=== PATIENT | female | born 1960 | race Caucasian/White ===

== ENCOUNTER 2019-08-03 06:00 | Outpatient (RCR) | payer BC, SELFPAY | END 2019-08-17 23:59 | disposition home or self-care (01) | LOC: WPT 06:00 | PROVIDERS: Family Provider Nurse Practitioner Family; PCP Nurse Practitioner Family; Referring Provider Nurse Practitioner; Visit Provider Nurse Practitioner | DX: M21.371 Foot drop, right foot (principal) | CPT/HCPCS: 97110; 97112; 97161 ==

== ENCOUNTER 2019-08-18 06:00 | Outpatient (RCR) | payer BC, SELFPAY | END 2019-09-15 23:59 | disposition home or self-care (01) | LOC: WPT 06:00 | PROVIDERS: Family Provider Nurse Practitioner Family; PCP Nurse Practitioner Family; Referring Provider Nurse Practitioner; Visit Provider Nurse Practitioner | DX: M21.371 Foot drop, right foot (principal) | CPT/HCPCS: 97110; 97112; 97164 ==

== ENCOUNTER 2019-09-12 15:58 | Outpatient (REF) | payer SELFPAY ==
[2019-09-12 21:18] LABS: Estmated Average Glucose 131; Hemoglobin A1C 6.2 % (4.0-6.0)
== END 2019-09-12 15:59 | disposition home or self-care (01) ==
LOC: LAB 15:58
PROVIDERS: Family Provider Nurse Practitioner Family; PCP Nurse Practitioner Family; Visit Provider Dermatology
DX: Z13.9 Encounter for screening, unspecified (principal)
CPT/HCPCS: 83036

== ENCOUNTER 2019-09-16 06:00 | Outpatient (RCR) | payer BC, SELFPAY | END 2019-10-16 23:59 | disposition home or self-care (01) | LOC: WPT 06:00 | PROVIDERS: Family Provider Nurse Practitioner Family; PCP Nurse Practitioner Family; Referring Provider Nurse Practitioner; Visit Provider Nurse Practitioner | DX: M21.371 Foot drop, right foot (principal) | CPT/HCPCS: 97110 ==

== ENCOUNTER → 2020-01-08 12:25 | Outpatient (BNVA) | payer BC, SELFPAY | PROVIDERS: Family Provider Nurse Practitioner Family; PCP Nurse Practitioner Family; Visit Provider Nurse Practitioner Family | DX: F41.9 Anxiety disorder, unspecified (principal); M54.5 Low back pain; E55.9 Vitamin D deficiency, unspecified; E78.2 Mixed hyperlipidemia; E11.9 Type 2 diabetes mellitus without complications | CPT/HCPCS: 80053; 80061; 82306; 83036; 83735; 85025 ==

== ENCOUNTER → 2020-01-09 11:27 | Outpatient (BNVA) | payer BC, SELFPAY | PROVIDERS: Family Provider Nurse Practitioner Family; PCP Nurse Practitioner Family; Visit Provider Nurse Practitioner Family | DX: E03.9 Hypothyroidism, unspecified (principal); E55.9 Vitamin D deficiency, unspecified; F41.9 Anxiety disorder, unspecified; M54.5 Low back pain; E83.42 Hypomagnesemia; E11.9 Type 2 diabetes mellitus without complications; G89.29 Other chronic pain; E78.2 Mixed hyperlipidemia | CPT/HCPCS: 84443 ==

== ENCOUNTER → 2020-03-19 10:29 | Outpatient (BNVA) | payer BC, SELFPAY | PROVIDERS: Family Provider Nurse Practitioner Family; PCP Nurse Practitioner Family; Visit Provider Nurse Practitioner Family | DX: E03.9 Hypothyroidism, unspecified (principal); E11.9 Type 2 diabetes mellitus without complications; E78.2 Mixed hyperlipidemia; E55.9 Vitamin D deficiency, unspecified; D64.9 Anemia, unspecified; F41.9 Anxiety disorder, unspecified; M54.5 Low back pain; G89.29 Other chronic pain | CPT/HCPCS: 80053; 80061; 81003; 82306; 83036; 83550; 83735; 84443; 85025 ==

== ENCOUNTER 2020-04-08 10:23 | Outpatient (CLI) | payer BC, SELFPAY ==
--- NOTE | 2020-04-08 10:38 | XRR_ITS ---
PROCEDURE INFORMATION: Exam: XR Bilateral Sacroiliac Joints, 3 or More Views Exam date and time: 04/08/2020 10:56 AM Age: 59 years old Clinical indication: Prior surgery; Surgery type: Lumbar; Patient HX: Vadim si joint pain, clicks during walking; Additional info: Sacroiliitis TECHNIQUE: Imaging protocol: XR Bilateral XR of the sacroiliac joints, AP inlet, both oblique views. COMPARISON: No relevant prior studies available. FINDINGS: Bones/joints: No specific abnormality of the sacroiliac joints. No bony erosions. Previous L4 and L5 laminectomies. Bilateral L3, L4, and L5 pedicle screw and deandra systems with L3-4 and L4-5 intervertebral disc space grafts. Lower pelvic mesh spiral tacks (ProTack). Soft tissues: Normal. XR/XR sacroiliac [facility] 3V [id number] IMPRESSION: No specific abnormality of the sacroiliac joints.
== END 2020-04-08 10:24 | disposition home or self-care (01) ==
LOC: RAD 10:30
PROVIDERS: PCP Nurse Practitioner Family; Visit Provider Nurse Practitioner Family
DX: M46.1 Sacroiliitis, not elsewhere classified (principal)
CPT/HCPCS: 72202

== ENCOUNTER 2020-04-28 10:51 | Outpatient (CLI) | payer BC, SELFPAY ==
--- NOTE | 2020-04-28 10:56 | CT_ITS ---
WS: [id number] CT pelvis TECHNIQUE: Noncontrast CT of the pelvis with coronal and sagittal reformatted images. CLINICAL INFORMATION: R/O Sacroiliitis COMPARISON: None. DLP: 772.[address] scans at [facility] use at least one of these dose optimization techniques: automat ed exposure control; mA and/or kV adjustment per patient size (includes targeted exams where dose is matched to clinical indication); or iterative reconstruction. FINDINGS: Prior postoperative changes L4 and L5 laminectomies. Pedicle screw fixation bilateral L3-L5. Interbod y fusion grafts L3-L4 and L4-L5. Postoperative changes pelvic mesh repair in the pelvis. Mild sclerosis involving the right greater than left sacroiliac joints consistent with sacroiliitis a nd/or degenerative change. No significant periarticular erosions. Acetabulum normal in appearance. Fe moral necks appear normal. Normal sigmoid colon. No inguinal lymphadenopathy. No pelvic lymphadenopathy. No other significant fi ndings. CT/CT pelvis wo con [id number] IMPRESSION: 1. Mild sclerosis involving the right greater than left sacroiliac joints cons istent with prior sacroiliitis and/or chronic degenerative changes. No signific ant erosions. 2. Postoperative changes lower lumbar spine described above. 3. No other significant findings.
== END 2020-04-28 10:52 | disposition home or self-care (01) ==
PROVIDERS: PCP Nurse Practitioner Family; Visit Provider Nurse Practitioner Family
DX: M46.1 Sacroiliitis, not elsewhere classified (principal)
CPT/HCPCS: 72192

== ENCOUNTER 2020-06-04 14:02 | Outpatient (CLI) | payer BC, SELFPAY ==
--- NOTE | 2020-06-04 14:15 | US_ITS ---
WS: [id number] RIGHT UPPER QUADRANT ULTRASOUND HISTORY: K76.0 - Fatty (change of) liver, not elsewhere classified COMPARISON: None available. Liver: 21.9 cm in length. Moderate enlargement the liver with diffuse hepatic steatosis. Surface of t he liver is very slightly nodular suggesting cirrhosis. Liver has also increased slightly in size sin ce the prior study. Gallbladder: Prior cholecystectomy. CBD: 0.5 cm Pancreas: Normal size and echogenicity. Right kidney: 11.1 cm in length. Normal size and echogenicity. No hydronephrosis or mass. Aorta and IVC: Unremarkable abdominal aorta and IVC. No ascites. US/US liver [id number] IMPRESSION: 1. Moderate hepatomegaly and hepatic steatosis. Both findings have increased s flo 2018. 2. Prior cholecystectomy.
== END 2020-06-04 14:03 | disposition home or self-care (01) ==
LOC: RAD 14:06
PROVIDERS: PCP Nurse Practitioner Family; Visit Provider Family Medicine
DX: K76.0 Fatty (change of) liver, not elsewhere classified (principal); R16.0 Hepatomegaly, not elsewhere classified
CPT/HCPCS: 76705

== ENCOUNTER → 2020-06-10 09:58 | Outpatient (BNVA) | payer BC, SELFPAY | PROVIDERS: PCP Nurse Practitioner Family; Visit Provider Family Medicine | DX: M25.512 Pain in left shoulder (principal); M19.019 Primary osteoarthritis, unspecified shoulder | CPT/HCPCS: 73030 ==

== ENCOUNTER 2020-06-23 11:22 | Outpatient (CLI) | payer BC, SELFPAY ==
--- NOTE | 2020-06-23 11:30 | MM_ITS ---
WS: [id number] SCREENING DIGITAL MAMMOGRAM WITH CAD HISTORY: breast cancer screening COMPARISON: 06/11/2019 and 03/29/2018 Bilateral CC and MLO views submitted. Computer aided detection analyzed. Breast composition: The breasts are almost entirely fatty. No suspicious masses, microcalcifications or architectural distortion. Benign calcification upper-outer quadrant RIGHT breast. MM/[place] [id number] IMPRESSION: BI-RADS: 2-Benign FOLLOW UP: 1 Year Follow-up
== END 2020-06-23 11:23 | disposition home or self-care (01) ==
LOC: RADSHAW 11:25
PROVIDERS: PCP Nurse Practitioner Family; Visit Provider Nurse Practitioner Family
DX: Z12.31 Encounter for screening mammogram for malignant neoplasm of breast (principal)
CPT/HCPCS: 77067

== ENCOUNTER → 2020-08-19 12:08 | Outpatient (BNVA) | payer MEDICARE, SELFPAY | PROVIDERS: PCP Nurse Practitioner Family; Visit Provider Family Medicine | DX: L76.32 Postprocedural hematoma of skin and subcutaneous tissue following other procedure (principal); Y83.8 Other surgical procedures as the cause of abnormal reaction of the patient, or of later complication, without mention of misadventure at the time of the procedure; E11.9 Type 2 diabetes mellitus without complications | CPT/HCPCS: 83036; 85025 ==

== ENCOUNTER → 2020-09-05 08:44 | Outpatient (BNVA) | payer MEDICARE, SELFPAY | PROVIDERS: PCP Nurse Practitioner Family; Visit Provider Nurse Practitioner Family | DX: E83.42 Hypomagnesemia (principal); E11.9 Type 2 diabetes mellitus without complications | CPT/HCPCS: 80053; 83735 ==

== ENCOUNTER → 2020-10-08 11:11 | Outpatient (BNVA) | payer MEDICARE, SELFPAY | PROVIDERS: PCP Nurse Practitioner Family; Visit Provider Nurse Practitioner Family | DX: N39.0 Urinary tract infection, site not specified (principal); A49.9 Bacterial infection, unspecified | CPT/HCPCS: 81003; 87086 ==

== ENCOUNTER → 2020-10-13 14:30 | Outpatient (BNVA) | payer MEDICARE, SELFPAY | PROVIDERS: PCP Nurse Practitioner Family; Visit Provider Internal Medicine | DX: Z12.11 Encounter for screening for malignant neoplasm of colon (principal); Z01.812 Encounter for preprocedural laboratory examination | CPT/HCPCS: 87635 ==

== ENCOUNTER 2020-10-20 07:16 | Day surgery (SDC) | payer MEDICARE, SELFPAY ==
[2020-10-17 10:48] VITALS: BMI 37.0
--- NOTE | 2020-10-20 07:34 | ANES.PREANE2 ---
Pre-Anesthetic Assessment Pre-Anesthetic Assessment: Height/Weight: Height 1.63 m Weight 97.976 kg Preop Diagnosis: screening Proposed Procedure: Operation Date: 10/20/20 09:00 Proposed Procedures p Colonoscopy G0121 Z12.11(Not Applicable) - Reza Rose MD Familial anesthetic complications: none Last intake: > 8 hrs Social: Social History: Tobacco Exam: Pre-Anes Outpt Exam: alert, oriented x 3, clear to auscultation bilaterally and regular rate & rhythm Airway: Cervical ROM: WNL MP: 3 Dentition: Partials CV/HEM: CV/HEM: HTN Hepatic: Comments: fatty liver GI: GI: GERD Metabolic: Metabolic: DM and Thyroid Musc/skel: Musc/skel: Lower Back Pain Anesthetic Plan: ASA status: 3 Anesthesia: MAC Risk of > 500 ml blood loss (7ml/kg in children): No PFSH Anesthesia PFSH: Medical History Adult hypothyroidism Anemia Breast cancer screening by mammogram Chronic back pain Disorder of SI (sacroiliac) joint Essential hypertension GERD (gastroesophageal reflux disease) History of stress test 12/2017 Unremarkable Lexiscan infusion. #1. My call perfusion imaging revealing a small area of persistent decreased tracer uptake in the anterior wall and anteroseptal region, most likely represent attenuation artifact. #2. Normal LV ejection fraction of 75%. #3. LV wall motion analysis revealed no gross wall motion abnormalities. #4. Normal LV volume. No significant coronary ischemia, based on the above findings Hypercholesterolemia Hypomagnesemia Low back pain Mixed hyperlipidemia Nonalcoholic fatty liver disease Osteoarthritis of spine with myelopathy, lumbar region Sacroiliitis Type 2 diabetes mellitus UTI (urinary tract infection), bacterial Vitamin D deficiency Surgical History History of back surgery S/P cholecystectomy S/P colonoscopy 2013 - normal colonoscopy S/P total abdominal hysterectomy Family History Other CAD (coronary artery disease) Cancer Social History Smoking and tobacco status: current every day smoker Alcohol intake: current Alcohol intake frequency: holidays/special occasions only Data Anesthesia Cardiac Studies: No Data to Display
--- NOTE | 2020-10-20 08:31 | W.PM.OPSUD ---
Surgery/Procedure H&P Update DATE OF PROCEDURE: October 20, 2020 DATE H&P PERFORMED: 10/13/20 PREOP DIAGNOSIS: screening PLANNED PROCEDURE: Operation Date: 10/20/20 09:00 Proposed Procedures p Colonoscopy G0121 Z12.11(Not Applicable) - Reza Rose MD
[2020-10-20 08:57] VITALS: BP 100/57; PULSE 73; RESP 18; TEMP 36.1; O2SAT 94
[2020-10-20] MEDS: sodium chloride 0.9% 1,000 ML 30 ML IV (09:26)
[2020-10-20 09:36] LABS: Glucose Point of Care 113 mg/dL (70-110)
[2020-10-20 10:07] VITALS: BP 85/55; PULSE 97; RESP 16; TEMP 36.8; O2SAT 97
[2020-10-20 10:23] VITALS: BP 107/63; PULSE 71; RESP 18; O2SAT 97
--- NOTE | 2020-10-20 17:44 | ANE.PACU2 ---
Inpatient post-anesthesia follow up: Airway intact: Yes Vital signs: Temperature 98.3 F Pulse Rate 71 Respiratory Rate 18 Blood Pressure 107/63 Pulse Oximetry 97 Oxygen Delivery Me thod Room Air Oxygen Flow Rate 2 Fraction of Inspir ed Oxygen Hydration adequate: Yes Nausea and vomiting: No Pain level: 2 Mental status: Baseline
== END 2020-10-20 10:41 | disposition home or self-care (01) ==
PROVIDERS: PCP Nurse Practitioner Family; Visit Provider Internal Medicine
PROC: 0DJD8ZZ Inspection of Lower Intestinal Tract, Via Natural or Artificial Opening Endoscopic (ICD-10-PCS; CPT 45378; principal; 2020-10-20 09:00)
DX: Z12.11 Encounter for screening for malignant neoplasm of colon (principal); E03.9 Hypothyroidism, unspecified; K21.9 Gastro-esophageal reflux disease without esophagitis; I10 Essential (primary) hypertension; E78.2 Mixed hyperlipidemia; F17.210 Nicotine dependence, cigarettes, uncomplicated; E11.9 Type 2 diabetes mellitus without complications
CPT/HCPCS: 36416; 82962; 96360; G0121; J2704; J7030

== ENCOUNTER → 2020-12-11 12:01 | Outpatient (BNVA) | payer MEDICARE, SELFPAY | PROVIDERS: PCP Nurse Practitioner Family; Visit Provider Nurse Practitioner Family | DX: E11.9 Type 2 diabetes mellitus without complications (principal); E83.42 Hypomagnesemia; E78.2 Mixed hyperlipidemia; D64.9 Anemia, unspecified; E03.9 Hypothyroidism, unspecified; K76.0 Fatty (change of) liver, not elsewhere classified | CPT/HCPCS: 80053; 80061; 81003; 82607; 82728; 82746; 83036; 83550; 83735; 84100; 84439; 84443; 85025 ==

== ENCOUNTER 2021-01-23 09:45 | Outpatient (CLI) | payer MEDICARE, SELFPAY ==
--- NOTE | 2021-01-23 10:00 | XR_ITS ---
WS: [id number] ABDOMEN KUB CLINICAL INFORMATION: Lower right rib and upper quadrant pain COMPARISON: None. FINDINGS: Normal bowel gas pattern. Scattered air and normal caliber small and large bowel. No significant golden l distention. Hepatomegaly with enlarged right hepatic lobe. This can be further evaluated ultrasound . Cholecystectomy clips. Pedicle screw fixation with interbody fusion L3-L5. Associated laminectomy def ects. Interbody fusion grafts. Left sacroiliac fusion. Postoperative changes overlying the pelvis. Aileen mbar curve convex right with moderate spondylitic changes. Pelvic phleboliths. XR/XR KUB [id number] Impression: 1. Normal bowel gas pattern. 2. Hepatomegaly with enlarged right hepatic lobe. This can be further evaluate d with ultrasound. 3. Prior cholecystectomy.
--- NOTE | 2021-01-23 10:15 | XR_ITS ---
WS: [id number] RIBS RIGHT TECHNIQUE: 3 views of the right ribs CLINICAL INFORMATION: R10.9 - Unspecified abdominal pain COMPARISON: None. FINDINGS: Right ribs are normal in appearance. No acute right rib fractures. Lumbar curve convex right with medical screw fixation L3-L5. XR/XR ribs RT 2V* [id number] IMPRESSION: No visualized right rib fractures.
== END 2021-01-23 09:46 | disposition home or self-care (01) ==
PROVIDERS: PCP Nurse Practitioner Family; Visit Provider Nurse Practitioner Family
DX: R07.81 Pleurodynia; R10.11 Right upper quadrant pain; R16.0 Hepatomegaly, not elsewhere classified; Z90.49 Acquired absence of other specified parts of digestive tract
CPT/HCPCS: 71100; 74018

== ENCOUNTER → 2021-02-16 10:02 | Outpatient (BNVA) | payer MEDICARE, SELFPAY | PROVIDERS: PCP Nurse Practitioner Family; Visit Provider Nurse Practitioner Family | DX: Z20.822 Contact with and (suspected) exposure to COVID-19 (principal); J32.9 Chronic sinusitis, unspecified | CPT/HCPCS: 87635 ==

== ENCOUNTER → 2021-03-03 10:50 | Outpatient (BNVA) | payer MEDICARE, SELFPAY | PROVIDERS: PCP Nurse Practitioner Family; Visit Provider Family Medicine | DX: R10.9 Unspecified abdominal pain (principal); R16.0 Hepatomegaly, not elsewhere classified; R16.1 Splenomegaly, not elsewhere classified; Z98.1 Arthrodesis status | CPT/HCPCS: 74018; 83690; 85025; 86140 ==

== ENCOUNTER 2021-03-04 11:52 | Outpatient (CLI) | payer MEDICARE, SELFPAY ==
--- NOTE | 2021-03-04 13:30 | CT_ITS ---
WS: [id number] CT ABDOMEN PELVIS TECHNIQUE: Noncontrast CT of the abdomen and pelvis with coronal and sagittal reformatted images. CLINICAL INFORMATION: R10.9 - Unspecified abdominal pain COMPARISON: CT pelvis April 28, 2020 DLP: 876.[address] scans at [facility] use at least one of these dose optimization techniques: automat ed exposure control; mA and/or kV adjustment per patient size (includes targeted exams where dose is matched to clinical indication); or iterative reconstruction. FINDINGS: Hepatomegaly with slight cirrhotic configuration to the liver capsule. Recommend correlation with izzy er function studies. Mild splenomegaly. Prior cholecystectomy. Normal GE junction. Lung bases are wel l aerated. Adrenal glands are normal. No hydronephrosis in either kidney. Pelvic phleboliths. Prior postoperative changes L3-L5 with interbody fusion grafts. Fusion across the left sacroiliac robyn nt. Normal sigmoid colon. No evidence of high-grade small or large bowel obstruction. A few air-fluid lev els in normal caliber transverse colon. Small bowel is decompressed. Normal caliber abdominal aorta. Mild aortic calcification. Tiny fat-containing umbilical hernia. CT/CT abdomen pelvis wo con [id number] IMPRESSION: 1. Marked hepatomegaly with enlargement of the right hepatic lobe. Slight cirr hotic contour to the liver. Recommend correlation with liver function studies. 2. Mild splenomegaly. 3. No evidence of high-grade small or large bowel obstruction. A few air-fluid levels in normal caliber transverse colon. Small bowel is decompressed. 4. No free fluid in the abdomen or pelvis. 5. No hydronephrosis in either kidney. 6. Prior L3-L5 lumbar spine fusion with left sacroiliac fusion.
== END 2021-03-04 11:53 | disposition home or self-care (01) ==
PROVIDERS: PCP Nurse Practitioner Family; Visit Provider Family Medicine
DX: K76.0 Fatty (change of) liver, not elsewhere classified (principal); R10.9 Unspecified abdominal pain; M43.26 Fusion of spine, lumbar region; R16.1 Splenomegaly, not elsewhere classified; R16.0 Hepatomegaly, not elsewhere classified
CPT/HCPCS: 74176; 80053; 80074; 82728; 82977; 85610; 86160; 86162; 86235; 86255; 86376

== ENCOUNTER → 2021-04-14 11:20 | Outpatient (BNVA) | payer MEDICARE, SELFPAY | PROVIDERS: PCP Nurse Practitioner Family; Visit Provider Family Medicine | DX: E11.9 Type 2 diabetes mellitus without complications (principal); K76.0 Fatty (change of) liver, not elsewhere classified; E78.2 Mixed hyperlipidemia | CPT/HCPCS: 80053; 80061; 83036; 85025 ==

== ENCOUNTER 2021-04-30 07:01 | Outpatient (CLI) | payer MEDICARE, SELFPAY ==
--- NOTE | 2021-04-30 07:14 | MR_ITS ---
WS: [email or web address] MRCP (MAGNETIC RESONANCE CHOLANGIOPANCREATOGRAPHY) HISTORY: R10.9 - Unspecified abdominal pain COMPARISON: None available. TECHNIQUE: Multiple sequences are performed to evaluate the intra and extrahepatic ducts. Liver is enlarged extending 20 cm in length. No bile duct dilatation or mass within the liver. The sp suzette is also mildly enlarged at 13.8 cm. Normal size portal vein. Gallbladder has been removed. The c ommon bile duct is normal at 4.8 cm. Normal appearance of these pancreas. No pancreatic head mass. No rmal size pancreatic duct. Normal adrenal glands. Kidneys are normal. MR/MR MRCP [id number] IMPRESSION: 1. Prior cholecystectomy. 2. Normal sized common bile duct. 3. Moderate hepatomegaly and mild splenomegaly.
== END 2021-04-30 07:02 | disposition home or self-care (01) ==
LOC: RADSHAW 07:02
PROVIDERS: PCP Nurse Practitioner Family; Visit Provider Family Medicine
DX: R16.1 Splenomegaly, not elsewhere classified (principal); R16.0 Hepatomegaly, not elsewhere classified; R10.9 Unspecified abdominal pain; Z90.49 Acquired absence of other specified parts of digestive tract
CPT/HCPCS: 74181

== ENCOUNTER 2021-05-18 10:16 | Outpatient (CLI) | payer MEDICARE, SELFPAY ==
[2021-05-19 11:22] LABS: Alpha 1 Antitrypsin 169 mg/dL (83-199)
== END 2021-05-18 10:17 | disposition home or self-care (01) ==
LOC: LAB 10:25
PROVIDERS: PCP Family Medicine; Visit Provider Family Medicine
DX: K76.0 Fatty (change of) liver, not elsewhere classified (principal)
CPT/HCPCS: 82103; 83516

== ENCOUNTER 2021-06-25 08:19 | Outpatient (CLI) | payer MEDICARE, SELFPAY ==
--- NOTE | 2021-06-25 08:49 | MM_ITS ---
WS: [email or web address] Exam: [place] [id number] Date/Time of Exam: 06/25/2021 8:54 AM Reason For Exam: SCREENING VIEWS: MLO and CC views both breasts. Comparison made with prior exam of 03/29/2018, 06/11/2019 and 06/23/2020. Findings: There was no sign of mass, architectural distortion or suspicious calcification in either breast. Fa [place]ty MM/[place] [id number] Impression: BI-RADS: 2-Benign FOLLOW-UP: 1 Year Follow-up This mammogram was also analyzed by the Computer Aided Detection System R2 Imag e Accreditation Coordinator.
== END 2021-06-25 08:20 | disposition home or self-care (01) ==
LOC: RADSHAW 08:41
PROVIDERS: PCP Family Medicine; Visit Provider Nurse Practitioner Family
DX: Z12.31 Encounter for screening mammogram for malignant neoplasm of breast (principal)
CPT/HCPCS: 77067

== ENCOUNTER → 2021-08-18 08:27 | Outpatient (BNVA) | payer MEDICARE, SELFPAY | PROVIDERS: PCP Family Medicine; Visit Provider Family Medicine | DX: E11.9 Type 2 diabetes mellitus without complications (principal); E03.9 Hypothyroidism, unspecified; E78.2 Mixed hyperlipidemia; E83.42 Hypomagnesemia | CPT/HCPCS: 80053; 80061; 83036; 83735; 84443 ==

== ENCOUNTER 2021-09-04 11:42 | Outpatient (CLI) | payer MEDICARE, SELFPAY ==
--- NOTE | 2021-09-04 11:50 | XR_ITS ---
WS: [email or web address] LUMBAR SPINE TECHNIQUE: 7 views of the lumbar spine CLINICAL INFORMATION: M54.50 - Low back pain, unspecified COMPARISON: None. FINDINGS: Mild lumbar curve convex RIGHT. Pedicle screw fixation L3-L5 with interconnecting rods. Laminectomy d efects L3-L5. Screw fixation across the LEFT sacroiliac joint. Cholecystectomy clips. Interbody bony fusion through L3-L4 and L4-L5.. Aortic calcification. Trace anterolisthesis L3 on L4. Disc space narrowing worse at L2-L3 and L5-S1. No instability on flex ion-extension. XR/XR lumbar spine 6V w f/e [id number] IMPRESSION: 1. No instability on flexion-extension. 2. Pedicle screw fixation L3-L5 with laminectomy defects and interbody fusion grafts. 3. Hardware fixation across the LEFT sacroiliac joint. 4. Mild lumbar curve convex RIGHT. 5. Disc space narrowing worse at L2-L3 and L5-S1.
== END 2021-09-04 11:43 | disposition home or self-care (01) ==
PROVIDERS: PCP Family Medicine; Visit Provider Nurse Practitioner Family
DX: M54.50 Low back pain, unspecified (principal)
CPT/HCPCS: 72114

== ENCOUNTER → 2022-04-20 09:48 | Outpatient (BNVA) | payer MEDICARE, SELFPAY | PROVIDERS: PCP Family Medicine; Visit Provider Anesthesiology Pain Medicine | DX: G89.29 Other chronic pain (principal); M53.3 Sacrococcygeal disorders, not elsewhere classified; M46.1 Sacroiliitis, not elsewhere classified; M43.26 Fusion of spine, lumbar region; M51.16 Intervertebral disc disorders with radiculopathy, lumbar region; M47.816 Spondylosis without myelopathy or radiculopathy, lumbar region; M79.604 Pain in right leg; M79.605 Pain in left leg; Z87.891 Personal history of nicotine dependence | CPT/HCPCS: 99205 ==

== ENCOUNTER → 2022-04-28 13:23 | Outpatient (BNVA) | payer MEDICARE, SELFPAY | PROVIDERS: PCP Family Medicine; Visit Provider Anesthesiology Pain Medicine | DX: G89.29 Other chronic pain (principal); M79.18 Myalgia, other site; Z87.891 Personal history of nicotine dependence | CPT/HCPCS: 20553; G0463 ==

== ENCOUNTER → 2022-05-13 08:18 | Outpatient (BNVA) | payer MEDICARE, SELFPAY | PROVIDERS: PCP Family Medicine; Visit Provider Nurse Practitioner Family | DX: E03.9 Hypothyroidism, unspecified (principal); D64.9 Anemia, unspecified; I10 Essential (primary) hypertension; E78.2 Mixed hyperlipidemia; E11.9 Type 2 diabetes mellitus without complications | CPT/HCPCS: 80053; 80061; 83036; 84443; 85025 ==

== ENCOUNTER 2022-06-07 13:44 | Outpatient (CLI) | payer MEDICARE, SELFPAY ==
--- NOTE | 2022-06-07 13:45 | MR_ITS ---
WS: [email or web address] MRI OF THE SACRUM WITHOUT GADOLINIUM ENHANCEMENT. INDICATION: Low back pain and SI joint pain bilateral leg weakness. TECHNIQUE: Coronal T2, coronal STIR, axial T1, axial T2, sagittal T1 fat sat and sagittal T2 fat sat. FINDINGS: Postoperative changes as described on the concurrent lumbar spine MRI. Fusion across the LEFT sacroiliac joint. Normal bone marrow signal in the sacrum. No evidence of sacr al insufficiency fracture. Mild to moderate degenerative narrowing both hips. Normal bone marrow sign al in the femoral heads and femoral necks. Normal visualized soft tissues. No inguinal lymphadenopath y. MR/MR sacrum wo con* [id number] IMPRESSION: 1. Postoperative changes lower lumbar spine with screw fixation across the LEF T sacroiliac joint. Mild degenerative sclerosis about the RIGHT greater than LE FT sacroiliac joints. 2. Normal bone marrow signal in the sacrum. No evidence of sacral insufficienc y fracture. 3. No other suspicious findings.
== END 2022-06-07 13:45 | disposition home or self-care (01) ==
PROVIDERS: PCP Family Medicine; Visit Provider Nurse Practitioner Family
DX: M48.062 Spinal stenosis, lumbar region with neurogenic claudication (principal); M48.061 Spinal stenosis, lumbar region without neurogenic claudication; M50.222 Other cervical disc displacement at C5-C6 level
CPT/HCPCS: 72148

== ENCOUNTER 2022-06-07 13:45 | Outpatient (CLI) | payer MEDICARE, SELFPAY ==
--- NOTE | 2022-06-07 14:30 | MR_ITS ---
WS: [email or web address] MRI LUMBAR SPINE NONCONTRAST TECHNIQUE: Sagittal T1, T2 and STIR imaging. Axial T1 and T2 imaging. CLINICAL INFORMATION: M48.062 - Spinal stenosis, lumbar region with neurogenic ... COMPARISON: MRI 2019 FINDINGS: Counting performed from the craniocervical junction. S1 is lumbarized. Recommend plain film correlati on prior to surgical intervention. Numbering convention corresponds to the prior MRI in 2019. Prior p ostoperative changes pedicle screw fixation L4-S1 with interbody fusion grafts. Laminectomy defects L 4-S1. Shallow disc protrusions in the cervical spine hockey scout imaging at C5-C6. L1-L2: Normal. L2-L3: Mild disc osteophytic ridging. Impingement RIGHT subarticular recess and traversing RIGHT L3 n erve root. Slight impingement on the exiting RIGHT L2 nerve root with mild RIGHT foraminal narrowing unchanged from previous. Mild facet arthropathy. L3-L4: Mild disc osteophytic ridging. Moderate facet arthropathy. Moderate central canal stenosis pro gressed compared to previous. Small bilateral foraminal protrusions with mild LEFT greater than RIGHT foraminal narrowing. L4-L5: Prior laminectomy defects. Osteophytic ridging. Mild LEFT bony foraminal narrowing. Spinal can al and RIGHT foramen are patent. L5-S1: Disc osteophytic ridging. Laminectomy defects. Slight impingement traversing S1 nerve roots bi laterally. Mild LEFT and no significant RIGHT foraminal narrowing. S1-S2: S1 is lumbarized. Laminectomy defects. Spinal canal is patent. Moderate facet arthropathy. Mil d RIGHT foraminal narrowing. LEFT foramen is patent. Visualized pelvic bony structures: Normal. Paravertebral soft tissues: Normal. MR/MR lumbar spine wo con* [id number] IMPRESSION: 1. Counting performed from the craniocervical junction. S1 is lumbarized. Rigoberto mmend plain film correlation prior to surgical intervention. 2. Prior pedicle screw fixation with interbody fusion L4-S1. 3. Moderate central canal stenosis L3-L4 has progressed compared to previous. LEFT greater than RIGHT foraminal narrowing at this level with small foraminal protrusions. 4. Disc osteophyte complex L2-L3 with impingement RIGHT subarticular recess an d traversing RIGHT L3 nerve root. Mild RIGHT L2-L3 foraminal narrowing. This is stable compared to previous. 5. Laminectomy defects L4-S1. Spinal canal is decompressed. 6. Small central protrusion cervical spine hockey scout imaging at C5-C6 with slight contact of the cervical cord.
== END 2022-06-07 13:46 | disposition home or self-care (01) ==
PROVIDERS: PCP Family Medicine; Visit Provider Anesthesiology Pain Medicine
DX: M48.062 Spinal stenosis, lumbar region with neurogenic claudication (principal); M48.061 Spinal stenosis, lumbar region without neurogenic claudication; M50.222 Other cervical disc displacement at C5-C6 level
CPT/HCPCS: 72148

== ENCOUNTER → 2022-06-15 13:27 | Outpatient (BNVA) | payer MEDICARE, SELFPAY | PROVIDERS: PCP Family Medicine; Visit Provider Anesthesiology Pain Medicine | DX: G89.29 Other chronic pain (principal); M43.26 Fusion of spine, lumbar region; M47.816 Spondylosis without myelopathy or radiculopathy, lumbar region; M51.16 Intervertebral disc disorders with radiculopathy, lumbar region; M53.3 Sacrococcygeal disorders, not elsewhere classified; M46.1 Sacroiliitis, not elsewhere classified; M79.604 Pain in right leg; M79.605 Pain in left leg; Z87.891 Personal history of nicotine dependence | CPT/HCPCS: 99214 ==

== ENCOUNTER → 2022-06-24 16:03 | Outpatient (BNVA) | payer MEDICARE, SELFPAY | PROVIDERS: PCP Family Medicine; Visit Provider Nurse Practitioner | DX: R30.9 Painful micturition, unspecified (principal) | CPT/HCPCS: 81000 ==

== ENCOUNTER 2022-08-06 09:05 | Outpatient (CLI) | payer MEDICARE, SELFPAY ==
--- NOTE | 2022-08-06 09:38 | MM_ITS ---
WS: [email or web address] BILATERAL SCREENING DIGITAL TOMOSYNTHESIS MAMMOGRAM WITH CAD HISTORY: SCREENING COMPARISON: 06/25/2021, 06/23/2020 Bilateral CC and MLO views with tomosynthesis and synthetic mammography submitted. Computer aided det ection analyzed. Breast composition: The breasts are almost entirely fatty. No suspicious masses, microcalcifications or architectural distortion. Benign calcifications RIGHT breast. MM/[place] [id number] IMPRESSION: BI-RADS: 2-Benign FOLLOW UP: 1 Year Follow-up
== END 2022-08-06 09:06 | disposition home or self-care (01) ==
PROVIDERS: PCP Family Medicine; Visit Provider Family Medicine
DX: Z12.31 Encounter for screening mammogram for malignant neoplasm of breast (principal)
CPT/HCPCS: 77063; 77067

== ENCOUNTER 2022-09-27 16:19 | Outpatient (CLI) | payer MEDICARE, SELFPAY ==
--- NOTE | 2022-09-27 17:00 | CT_ITS ---
WS: [email or web address] CT LUMBAR SPINE, noncontrast. HISTORY: LUMBOSACRAL SPONDYLOSIS WITHOUT MYELOPATHY TECHNIQUE: Contiguous 2.0 mm axial imaging are performed. Sagittal and coronal reformats are submitte d and reviewed. All CT scans at [facility] use at least one of these dose optimization techni ques: automated exposure control; mA and/or kV adjustment per patient size (includes targeted exams w here dose is matched to clinical indication); or iterative reconstruction. IV contrast: None DLP: 1771.81 mGy.cm COMPARISON: Lumbar spine MRI 06/07/2022. Vertebral body numbering will be the same as on the prior MRI which described S1 is lumbarized in the posterior fusion from L4 to S1. L1 is the first nonrib-bearing vertebral body. Posterior lumbar fusion hardware from L4 to S1 with S1 being lumbarized. Interbody spacers at L4-5 an d L5-S1. There is at least partial ankylosis along the disc spacers. Advancing degenerative disc dise ase and vacuum disc phenomenon at L3-4. L1-2: Normal. L2-3: Diffuse annular disc bulging and osteophytic ridging. Disc and osteophyte encroachment upon the ventral thecal sac. Small vertebral body osteophytes contact the RIGHT exiting L2 nerve root. No dis placement. Very minimal central and subarticular recess narrowing. L3-4: Diffuse moderate osteophytic ridging with ligamentum flavum and facet arthritis. Bilateral fora talat osteophytes slightly greater on the LEFT. At least moderate central and bilateral subarticular recess and foraminal stenosis. There is disc, osteophyte and facet encroachment upon the L3 and L4 ne rve roots. L4-5: Mild osteophytic ridging. Prior laminectomy defect. Very mild foraminal stenosis. L5-S1: Mild osteophytic ridging and prior laminectomy defects. Very mild narrowing of the central can al and moderate LEFT foraminal stenosis. S1-S2: Disc osteophyte complex on the RIGHT with encroachment into the subarticular recess and proxim al foramina. There is a posterior laminectomy defect. No central stenosis. Disc osteophyte contacts t he exiting RIGHT S2 nerve root. Mild foraminal narrowing. LEFT screws extend across the SI joint. SI joints not widened. Mild bilateral degenerative air in the SI joints. CT/CT lumbar spine wo con* [id number] IMPRESSION: 1. Same numbering pattern will be utilized as on the prior MRI report which in dicates lumbar station of S1. 2. Posterior lumbar fusion from L4 to S1 with large posterior laminectomy defe cts. 3. Moderate central, bilateral subarticular recess and foraminal stenosis at L 3-4. Similar to the prior study. 4. Moderate LEFT foraminal stenosis and mild central stenosis at L5-S1 without change. 5. Moderate RIGHT disc osteophyte at S1-S2. Significant contact on the RIGHT e xiting S2 nerve root and foraminal narrowing. 6. Mild central and subarticular recess encroachment at L2-3.
== END 2022-09-27 16:20 | disposition home or self-care (01) ==
PROVIDERS: PCP Family Medicine; Visit Provider Physician Assistant
DX: M51.36 Other intervertebral disc degeneration, lumbar region (principal); M47.817 Spondylosis without myelopathy or radiculopathy, lumbosacral region; M43.26 Fusion of spine, lumbar region; M48.061 Spinal stenosis, lumbar region without neurogenic claudication; M48.07 Spinal stenosis, lumbosacral region; M25.78 Osteophyte, vertebrae
CPT/HCPCS: 72131

== ENCOUNTER → 2022-09-29 11:33 | Outpatient (BNVA) | payer MEDICARE, SELFPAY | PROVIDERS: PCP Family Medicine; Visit Provider Family Medicine | DX: E11.9 Type 2 diabetes mellitus without complications (principal); M48.00 Spinal stenosis, site unspecified | CPT/HCPCS: 80053; 80061; 83036; 84443; 85025 ==

== ENCOUNTER 2022-10-16 06:00 | Outpatient (RCR) | payer MEDICARE, SELFPAY | END 2022-11-14 23:59 | disposition home or self-care (01) | LOC: WPT 06:00 | PROVIDERS: Visit Provider Physician Assistant | DX: M47.817 Spondylosis without myelopathy or radiculopathy, lumbosacral region (principal); M43.26 Fusion of spine, lumbar region | CPT/HCPCS: 97110; 97112; 97162; 97530 ==

== ENCOUNTER → 2022-11-04 08:14 | Outpatient (BNVA) | payer MEDICARE, SELFPAY | PROVIDERS: PCP Nurse Practitioner; Visit Provider Nurse Practitioner | DX: E03.9 Hypothyroidism, unspecified (principal); E11.9 Type 2 diabetes mellitus without complications; K76.0 Fatty (change of) liver, not elsewhere classified; E55.9 Vitamin D deficiency, unspecified | CPT/HCPCS: 80053; 80061; 82306; 83036; 83735; 84443; 85025 ==

== ENCOUNTER → 2023-02-15 08:44 | Outpatient (BNVA) | payer MEDICARE, SELFPAY | PROVIDERS: PCP Nurse Practitioner; Visit Provider Nurse Practitioner | DX: E11.9 Type 2 diabetes mellitus without complications (principal); E78.2 Mixed hyperlipidemia | CPT/HCPCS: 80053; 80061; 83036; 84443 ==

== ENCOUNTER → 2023-05-25 09:45 | Outpatient (BNVA) | payer MEDICARE, SELFPAY | PROVIDERS: PCP Nurse Practitioner; Visit Provider Nurse Practitioner Family | DX: R68.89 Other general symptoms and signs (principal); R09.81 Nasal congestion; H65.93 Unspecified nonsuppurative otitis media, bilateral; H69.90 Unspecified Eustachian tube disorder, unspecified ear; J30.9 Allergic rhinitis, unspecified | CPT/HCPCS: 87400 ==

== ENCOUNTER → 2023-08-11 15:54 | Outpatient (BNVA) | payer MEDICARE, SELFPAY | PROVIDERS: PCP Nurse Practitioner; Visit Provider Nurse Practitioner Family | DX: I10 Essential (primary) hypertension (principal); E78.2 Mixed hyperlipidemia; F41.9 Anxiety disorder, unspecified; E11.9 Type 2 diabetes mellitus without complications; E03.9 Hypothyroidism, unspecified; E53.8 Deficiency of other specified B group vitamins; K76.0 Fatty (change of) liver, not elsewhere classified; D64.9 Anemia, unspecified; D51.8 Other vitamin B12 deficiency anemias; Z78.0 Asymptomatic menopausal state; G89.29 Other chronic pain | CPT/HCPCS: 80053; 80061; 81003; 82306; 82607; 82746; 83036; 84443; 85025 ==

== ENCOUNTER → 2023-09-02 08:09 | Outpatient (BNVA) | payer MEDICARE, SELFPAY | PROVIDERS: PCP Nurse Practitioner Family; Visit Provider Nurse Practitioner Family | DX: R25.2 Cramp and spasm (principal) | CPT/HCPCS: 80053; 83735 ==

== ENCOUNTER 2023-09-21 08:56 | Outpatient (CLI) | payer MEDICARE, SELFPAY ==
--- NOTE | 2023-09-21 09:00 | MM_ITS ---
WS: [email or web address] BILATERAL SCREENING DIGITAL TOMOSYNTHESIS MAMMOGRAM WITH CAD HISTORY: SCREENING COMPARISON: 08/06/2022, 06/25/2021 Bilateral CC and MLO views with tomosynthesis and synthetic mammography submitted. Computer aided det ection analyzed. Breast composition: The breasts are almost entirely fatty. No suspicious masses, microcalcifications or architectural distortion. Benign stable calcifications RIGHT breast. IMPRESSION: MM/[place] [id number] BI-RADS: 2-Benign FOLLOW UP: 1 Year Follow-up
== END 2023-09-21 08:57 | disposition home or self-care (01) ==
LOC: MOBLMAM 09:02
PROVIDERS: PCP Nurse Practitioner Family; Visit Provider Nurse Practitioner Family
DX: Z12.31 Encounter for screening mammogram for malignant neoplasm of breast (principal)
CPT/HCPCS: 77063; 77067

== ENCOUNTER → 2023-12-13 08:10 | Outpatient (BNVA) | payer MEDICARE, SELFPAY | PROVIDERS: PCP Nurse Practitioner Family; Visit Provider Nurse Practitioner Family | DX: E11.9 Type 2 diabetes mellitus without complications (principal) | CPT/HCPCS: 80053; 83036 ==

== ENCOUNTER → 2024-02-10 16:58 | Outpatient (BNVA) | payer MEDICARE, SELFPAY | PROVIDERS: PCP Nurse Practitioner Family; Visit Provider Nurse Practitioner Family | DX: R30.0 Dysuria (principal) | CPT/HCPCS: 81000 ==

== ENCOUNTER → 2024-04-06 08:15 | Outpatient (BNVA) | payer MEDICARE, SELFPAY | PROVIDERS: PCP Nurse Practitioner Family; Visit Provider Nurse Practitioner Family | DX: I10 Essential (primary) hypertension (principal); E11.9 Type 2 diabetes mellitus without complications; E03.9 Hypothyroidism, unspecified; E78.2 Mixed hyperlipidemia | CPT/HCPCS: 80053; 80061; 82043; 83036; 84443; 85025 ==

== ENCOUNTER → 2024-06-20 16:54 | Outpatient (BNVA) | payer MEDICARE, SELFPAY | PROVIDERS: PCP Nurse Practitioner Family; Visit Provider Nurse Practitioner Family | DX: G47.30 Sleep apnea, unspecified (principal); J02.9 Acute pharyngitis, unspecified | CPT/HCPCS: 87880 ==

== ENCOUNTER → 2024-07-16 14:21 | Outpatient (BNVA) | payer MEDICARE, SELFPAY | PROVIDERS: PCP Nurse Practitioner Family; Visit Provider Nurse Practitioner Family | DX: R50.9 Fever, unspecified (principal) | CPT/HCPCS: 87071; 87400; 87426; 87880 ==

== ENCOUNTER → 2024-08-02 10:49 | Outpatient (BNVA) | payer MEDICARE, SELFPAY | PROVIDERS: PCP Nurse Practitioner Family; Visit Provider Nurse Practitioner Family | DX: I10 Essential (primary) hypertension (principal); D51.8 Other vitamin B12 deficiency anemias; E11.9 Type 2 diabetes mellitus without complications; E78.2 Mixed hyperlipidemia; E55.9 Vitamin D deficiency, unspecified; F41.9 Anxiety disorder, unspecified; D64.9 Anemia, unspecified; K76.0 Fatty (change of) liver, not elsewhere classified; Z79.899 Other long term (current) drug therapy | CPT/HCPCS: 80053; 80061; 82306; 82607; 83036; 84439; 84443; 84481; 85025 ==

== ENCOUNTER 2024-10-04 09:50 | Outpatient (CLI) | payer MEDICARE, SELFPAY ==
--- NOTE | 2024-10-04 10:00 | MM_ITS ---
WS: [email or web address] SCREENING DIGITAL TOMOSYNTHESIS MAMMOGRAM WITH CAD HISTORY: Z12.31 - Encounter for screening mammogram for malignant ... COMPARISON: 09/21/2023, 08/06/2022 Bilateral CC and MLO with tomosynthesis views submitted. Synthetic mammography reviewed. Computer aided detection analyzed. Breast composition: The breasts are almost entirely fatty. No suspicious masses, microcalcifications or architectural distortion. Benign calcifications RIGHT breast. MM/MM scr tomosynthesis [id number] IMPRESSION: BI-RADS: 2 - Benign. FOLLOW UP: 1 Year Follow-up
== END 2024-10-04 09:51 | disposition home or self-care (01) ==
LOC: RAD 09:51
PROVIDERS: PCP Nurse Practitioner Family; Visit Provider Nurse Practitioner Family
DX: Z12.31 Encounter for screening mammogram for malignant neoplasm of breast (principal); R92.313 Mammographic fatty tissue density, bilateral breasts; R92.1 Mammographic calcification found on diagnostic imaging of breast
CPT/HCPCS: 77063; 77067

== ENCOUNTER → 2024-10-30 08:29 | Outpatient (BNVA) | payer MEDICARE, SELFPAY | PROVIDERS: PCP Nurse Practitioner Family; Visit Provider Nurse Practitioner Family | DX: E11.9 Type 2 diabetes mellitus without complications (principal) | CPT/HCPCS: 80053; 83036 ==

== ENCOUNTER → 2025-01-29 09:47 | Outpatient (BNVA) | payer MEDICARE, SELFPAY | PROVIDERS: PCP Nurse Practitioner Family; Visit Provider Nurse Practitioner Family | DX: E11.9 Type 2 diabetes mellitus without complications (principal); I10 Essential (primary) hypertension | CPT/HCPCS: 80053; 83036; 85025 ==

== ENCOUNTER → 2025-05-07 08:50 | Outpatient (BNVA) | payer MEDICARE, SELFPAY | PROVIDERS: PCP Nurse Practitioner Family; Visit Provider Nurse Practitioner Family | DX: E11.9 Type 2 diabetes mellitus without complications (principal); I10 Essential (primary) hypertension; E78.2 Mixed hyperlipidemia | CPT/HCPCS: 80053; 80061; 83036; 85025 ==

== ENCOUNTER → 2025-05-13 16:26 | Outpatient (BNVA) | payer MEDICARE, SELFPAY | PROVIDERS: PCP Nurse Practitioner Family; Visit Provider Nurse Practitioner Family | DX: D69.6 Thrombocytopenia, unspecified (principal) | CPT/HCPCS: 80503 ==

== ENCOUNTER → 2025-05-14 11:06 | Outpatient (BNVA) | payer MEDICARE, SELFPAY | PROVIDERS: PCP Nurse Practitioner Family; Visit Provider Nurse Practitioner Family | DX: E55.9 Vitamin D deficiency, unspecified (principal); D64.9 Anemia, unspecified; I10 Essential (primary) hypertension; E03.9 Hypothyroidism, unspecified; E53.8 Deficiency of other specified B group vitamins | CPT/HCPCS: 81003; 82306; 82607; 82728; 83550; 83921; 84439; 84443 ==

== ENCOUNTER 2025-06-05 10:00 | Oncology outpatient (recurring) (ONCR) | payer MEDICARE, SELFPAY ==
--- NOTE | 2025-06-05 10:00 | US_ITS ---
WS: [email or web address] Complete ABDOMINAL ULTRASOUND HISTORY: thrombocytopenia; obesity COMPARISON: 06/04/2020 Liver: 19.1 cm in length. Mildly enlarged liver with mild hepatic steatosis. No mass. No intrahepatic duct dilatation. Portal Vein: Normal hepatopetal flow with monophasic waveform. Gallbladder: Prior cholecystectomy. CBD: 0.2 cm Pancreas: Poorly visualized. Right kidney: 11.4 cm x 4.5 x 7.1 cm. Cortex:1.1 cm. Normal size and echogenicity. No hydronephrosis or mass. Left kidney: 11.7 cm x 4.1 cm x 5.8 cm. Cortex: 1.2 cm. Normal size and echogenicity. No hydronephrosis or mass. Spleen: 11.8 cm. Normal size and echogenicity. Aorta and IVC: Unremarkable abdominal aorta and IVC. US/US abdomen complete* [id number] Impression: 1. Study is limited by patient's body habitus. 2. Prior cholecystectomy. 3. Normal spleen. 4. No renal obstruction. 5. Mild hepatic steatosis and hepatomegaly.
== END 2025-06-16 23:59 | disposition home or self-care (01) ==
LOC: RAD 06-06 → ONCMED 06-06 08:24
PROVIDERS: PCP Nurse Practitioner Family; Visit Provider Internal Medicine
DX: D69.6 Thrombocytopenia, unspecified; E66.811 Obesity, class 1; E66.09 Other obesity due to excess calories; Z68.33 Body mass index [BMI] 33.0-33.9, adult; Z90.49 Acquired absence of other specified parts of digestive tract; K76.0 Fatty (change of) liver, not elsewhere classified; R16.0 Hepatomegaly, not elsewhere classified; Z53.9 Procedure and treatment not carried out, unspecified reason
CPT/HCPCS: 76700; 99204